=== PATIENT | male | born 1970 | race Caucasian/White ===

== ENCOUNTER → 2016-12-29 | Outpatient (CLI) | payer OTHER | END | disposition home or self-care (01) | LOC: RAD 10:38 | PROVIDERS: ATTEND Nurse Practitioner | DX: M25.562 Pain in left knee (principal) ==

== ENCOUNTER 2018-03-16 22:31 | Emergency (ER) | payer OTHER ==
[~2018-03-16] VITALS: Ht 180.3 cm; Wt 90.4 kg
[2018-03-16 22:34] VITALS: BP 163/96
[2018-03-16] MEDS ORDERED: DIPH,PERTUSS(ACELL),TET VAC/PF 0.5 ML IM-VACC ONE ×2 (22:49→23:00)
[2018-03-16] MEDS ORDERED: BACITRACIN ZINC OINT 500U/GM, 0.9 GM ONE (23:06)
== END 2018-03-16 23:20 | disposition home or self-care (01) ==
LOC: ED 23:00
DX: S61.211A Laceration without foreign body of left index finger without damage to nail, initial encounter (principal); W27.2XXA Contact with scissors, initial encounter; Y93.89 Activity, other specified; Y99.8 Other external cause status; Y92.009 Unspecified place in unspecified non-institutional (private) residence as the place of occurrence of the external cause
CPT/HCPCS: 12001; 90471; 90715

== ENCOUNTER 2019-07-17 04:28 | Emergency (ER) | payer OTHER ==
[~2019-07-17] VITALS: Ht 175.3 cm; Wt 85.2 kg
[2019-07-17] MEDS ORDERED: ONDANSETRON 2MG/ML, 2ML IVPush ONE (05:00)
[2019-07-17] MEDS ORDERED: HYDROmorphone 2 MG/ML, 1ML IVPush PRN (05:00)
[2019-07-17] MEDS ORDERED: SODIUM CHLORIDE FLUSH 10ML SYR IVF ONE (05:00)
[2019-07-17 05:05] LABS: MICROSCOPIC NOT IND
[2019-07-17 05:07] LABS: CULTURE INDICATED? NO
[2019-07-17] MEDS ORDERED: HYDROmorphone 1 MG/ML, 1ML VIAL ONE (05:08)
[2019-07-17] MEDS ORDERED: ONDANSETRON 2MG/ML, 2ML ONE (05:08)
[2019-07-17 05:36] LABS: BASOPHILS # (AUTO) 0.03 x10^3/uL (0-0.1); BASOPHILS % (AUTO) 1 % (0-1); EOSINOPHILS # (AUTO) 0.14 x10^3/uL (0-0.4); EOSINOPHILS % (AUTO) 3 % (1-7); LYMPHOCYTES # (AUTO) 2.07 x10^3/uL (1-3.4); LYMPHOCYTES % (AUTO) 41 % (22-44); MD NO; MEAN CORPUSCULAR HEMOGLOBIN 30.8 pg (27.5-34.5); MEAN CORPUSCULAR HGB CONC 33.6 g/dL (33.2-36.2); MEAN CORPUSCULAR VOLUME 91.7 fL (81-97); MONOCYTES % (AUTO) 8 % (2-9); NEUTROPHILS # (AUTO) 2.45 x10^3/uL (1.8-6.8); NEUTROPHILS % (AUTO) 48 % (42-75); PLATELET COUNT 209 x10^3/uL (130-400); RED BLOOD COUNT 4.83 x10^6/uL (4.38-5.82)
--- NOTE | 2019-07-17 05:40 | NUR ---
PT DESATED INTO THE HIGH 80"S AFTER HYDROMORPHONE, PT PLACED ON NC AT 2L
[2019-07-17 05:49] LABS: ALBUMIN 3.9 g/dL (3.4-5.0); ANION GAP 8 mmol/L (5-15); CALCIUM 9.1 mg/dL (8.5-10.1); CHLORIDE 109 mmol/L (98-107)
[2019-07-17 05:52] LABS: CREATININE 0.98 mg/dL (0.7-1.3)
[2019-07-17 05:53] LABS: ALANINE AMINOTRANSFERASE 26 U/L (12-78); ALKALINE PHOSPHATASE 63 U/L (45-117); BILIRUBIN,TOTAL 0.3 mg/dL (0.2-1.0)
--- NOTE | 2019-07-17 07:09 | NUR ---
Received report from REBEL Qureshi. All questions answered. Assuming care of pt at this time. Pt resting on gurney. Call light within reach. NADN. No needs expressed at this time.
--- NOTE | 2019-07-17 07:31 | NUR ---
D/C instructions and prescriptions provided. Pt verb understanding, questions answered. VSS, has ride home. IV d/c intact.
[2019-07-17 07:32] VITALS: BP 135/57
== END 2019-07-17 07:34 | disposition home or self-care (01) ==
LOC: ED 05:59
DX: B02.33 Zoster keratitis (principal); I10 Essential (primary) hypertension
CPT/HCPCS: 36415; 80053; 81003; 83690; 85025; 96374; 96375; 99283; J1170; J2405